=== PATIENT | male | born 1960 | race Caucasian/White ===

== ENCOUNTER 2018-07-10 08:43 | Day surgery (SDC) | payer BC, OTHER ==
[~2018-07-10 08:43] MED LIST: LIDOCAINE HCL 1% MPF 30 SOL ONE; PROPOFOL 500 MG/50 ML EMU IV ONE
[2018-07-10 10:07] VITALS: BP 129/85; PULSE 84; RESP 16; TEMP 97.7; O2SAT 95
== END 2018-07-10 10:20 | disposition home or self-care (01) ==
LOC: SURG 08:43
PROVIDERS: ATTEND Surgery
DX: Z12.11 Encounter for screening for malignant neoplasm of colon (principal); Z80.0 Family history of malignant neoplasm of digestive organs
CPT/HCPCS: J2001; J2704

== ENCOUNTER 2018-10-19 10:08 | Day surgery (SDC) | payer OTHER, BC ==
[~2018-10-19 10:08] MED LIST changes: +DEXAMETHASONE 20 MG/5 ML (4 MG/ML SOL) ONE; +FENTANYL 100MCG/2ML SOL ONE; +MIDAZOLAM 2 MG/2 ML SOL ONE; +ONDANSETRON HCL 4 MG/2 ML SOL ONE; +PROPOFOL 10 MG/ML 200 MG/20 ML EMU IV ONE; -PROPOFOL 500 MG/50 ML EMU IV ONE
[2018-10-19] MEDS ORDERED: BUPIVACAINE/EPI 0.25% 50 ML SOL ONE (10:54)
[2018-10-19] MEDS ORDERED: FENTANYL 100MCG/2ML SOL ONE (11:39)
[2018-10-19] MEDS ORDERED: PROPOFOL 10 MG/ML 200 MG/20 ML EMU IV ONE ×2 (11:53)
[2018-10-19 12:54] VITALS: TEMP 97.3
[2018-10-19] MEDS ORDERED: KETOROLAC TROMETHAMINE 30 MG/ML SOL ONE (13:00)
[2018-10-19] MEDS ORDERED: SODIUM CHLORIDE 0.9% FLUSH 10 ML SOL IV ONE (13:02)
[2018-10-19] MEDS ORDERED: METOCLOPRAMIDE HYDROCHLORIDE 5 MG/ML SOL ONE (13:55)
[2018-10-19] MEDS ORDERED: PROMETHAZINE HYDROCHLORIDE 25 MG/ML SOL ONE (13:55)
[2018-10-19 14:23] VITALS: RESP 16
[2018-10-19 23:58] VITALS: BP 136/78; PULSE 84; O2SAT 95
== END 2018-10-19 15:45 | disposition home or self-care (01) | DRG 950 ==
LOC: SURG 10:08
PROVIDERS: ATTEND Orthopaedic Surgery
DX: S83.242D Other tear of medial meniscus, current injury, left knee, subsequent encounter (principal)
CPT/HCPCS: J1100; J1885; J2250; J2405; J2550; J2765; J3010; A6402; J2001; J2704